=== PATIENT | male | born 1950 | race American Indian/Alaskan Native ===

== ENCOUNTER 2017-09-27 11:54 | Inpatient (IN) | payer MEDICARE, MEDICAID, OTHER ==
[2017-09-27] VITALS (9 sets, daily range): BP systolic 80–146; BP diastolic 34–89
[~2017-09-27] VITALS: Ht 167.6 cm; Wt 79.0 kg
[~2017-09-27 11:54] MED LIST: ASPI-1009 PO; MIDO2.5T14 PO; NORCO10T PO; OMEP40CA37 PO
[2017-09-27] MEDS ORDERED: NORepinephrine 8mg/ 250ml NS 250 ML IV ONE (14:59)
[2017-09-27] MEDS: hydrocortisone sod succ/PF 100mg/2ml inj. IV SCH ×2 (15:01→21:00)
[2017-09-27] MEDS ORDERED: normal saline 1000ml 1,000 ML IV SCH (15:07)
[2017-09-27] MEDS ORDERED: MIDAZolam 5mg/ml 2ml vial ONE (15:09)
[2017-09-27] MEDS ORDERED: sodium phosphate inj. 15 MMOL in dextrose 5%-water 150 ML IV PRN (15:10)
[2017-09-27] MEDS ORDERED: sodium phosphate inj. 30 MMOL in dextrose 5%-water 250 ML IV PRN (15:10)
[2017-09-27] MEDS ORDERED: magnesium Cl slow-release 64mg tablet PO PRN (15:10)
[2017-09-27] MEDS ORDERED: ipratropium/albuterol 3ml nebule NEB PRN (15:10)
[2017-09-27] MEDS ORDERED: Neutra Phos packet PO PRN (15:10)
[2017-09-27] MEDS ORDERED: vancomycin/NS 1 GM ADD-VANTAGE 250 ML IV SCH (15:10)
[2017-09-27] MEDS ORDERED: potassium Cl 20 mEq SR tablet PO PRN ×2 (15:10)
[2017-09-27] MEDS ORDERED: magnesium 4gm in 100ml NS 100 ML IV PRN (15:10)
[2017-09-27] MEDS ORDERED: magnesium 2GM in 50ml NS 50 ML IV PRN (15:10)
[2017-09-27] MEDS ORDERED: piperacillin-tazo 2.25gm/50ml 50 ML IV ONE (15:25)
[2017-09-27] MEDS ORDERED: vancomycin/NS 1 GM ADD-VANTAGE 250 ML IV ONE ×2 (15:26→18:30)
[2017-09-27 15:45] LABS: ABG HCO3 8.1 mmol/L (22.0-26.0); ABG OXYGEN SATURATION 98.2 % (95-98); ABG PCO2 (T) 26.9 mmHg (35.0-48.0); ABG PH (T) 7.098 (7.350-7.450); ABG PO2 (T) 133.8 mmHg (83-108); FCOHb 0.3 % (0.5-1.5); FMetHb 0.2 % (0.3-1.12); FO2Hb 97.7 % (94-100); MINUTE VOLUME 10 L/min; PEEP 5 cm H2O; RESPIRATORY RATE 12 b/min; RESPIRATORY RATE (OBSERVED) 23 b/min; TIDAL VOLUME 450 mL; TOTAL HEMOGLOBIN 9.9 G/dl (14.0-18.0)
[2017-09-27 15:55] LABS: OXYGEN SATURATION (MIXED VEN) 79.1 % (60-80); PO2 MIXED VENOUS (TEMP COR) 46.5 mmHg (35-46)
[2017-09-27 16:19] LABS: BASOPHILS % (AUTO) 0 % (0-1); EOSINOPHILS % (AUTO) 0 % (0-6); HEMATOCRIT 27.9 % (42.0-52.0); HEMOGLOBIN 9.3 g/dl (14.0-17.9); LYMPHOCYTES # (AUTO) 0.5 X10'3 (1.1-4.8); LYMPHOCYTES % (AUTO) 1.8 % (21-51); MEAN CORPUSCULAR HEMOGLOBIN 33.5 PG (27.0-31.0); MEAN CORPUSCULAR HGB CONC 33.3 % (33.0-36.5); MEAN CORPUSCULAR VOLUME 100.8 FL (78-98); MEAN PLATELET VOLUME 8.2 FL (7.4-10.4); MONOCYTES # (AUTO) 2.1 X10'3 (0-0.9); MONOCYTES % (AUTO) 7.9 % (2-12); NEUTROPHILS # (AUTO) 23.6 X10'3 (1.8-7.7); NEUTROPHILS % (AUTO) 90.3 % (42-75); PLATELET COUNT 114 X10'3 (140-440); RED BLOOD COUNT 2.77 X10'6 (4.70-6.10); RED CELL DISTRIBUTION WIDTH 19.3 % (11.5-14.5)
[2017-09-27 16:25] LABS: WHITE BLOOD COUNT 26.2 X10'3 (4.5-11.0)
[2017-09-27 16:39] LABS: ACANTHOCYTES FEW; ANISOCYTOSIS 2+; BURR CELLS 2+; PLATELET ESTIMATE DECREASED; TOTAL CELLS COUNTED 100
[2017-09-27 16:41] LABS: TOXIC VACUOLATION 2+
[2017-09-27] MEDS: pantoprazole 40 MG vial IV SCH (16:42)
[2017-09-27] MEDS: piperacillin-tazo 2.25gm/50ml 50 ML IV SCH ×2 (16:43→21:00)
[2017-09-27 16:50] LABS: ALANINE AMINOTRANSFERASE 88 U/L (12-78); ALBUMIN 1.6 G/DL (3.4-5.0); ALBUMIN/GLOBULIN RATIO 0.4 (1.1-1.5); ALKALINE PHOSPHATASE 115 IU/L (46-116); ANION GAP 17 (8-16); ASPARTATE AMINO TRANSFERASE 312 U/L (10-37); BILIRUBIN,TOTAL 3.5 MG/DL (0.1-1.0); BLOOD UREA NITROGEN 50 MG/DL (7-18); BUN/CREATININE RATIO 12.9 (5.4-32.0); CALCIUM 7.1 MG/DL (8.5-10.1); CHLORIDE 112 MMOL/L (99-107); CREATININE 3.88 MG/DL (0.60-1.10); GLUCOSE 72 MG/DL (70-104); LACTIC SEPSIS 3.9 MMOL/L (0.4-2.0); MAGNESIUM 1.6 MG/DL (1.5-2.4); PHOSPHORUS 4.6 MG/DL (2.3-4.5); POTASSIUM 4.2 MMOL/L (3.5-5.1); SODIUM 139 MMOL/L (135-145); TOTAL PROTEIN 5.6 G/DL (6.4-8.2); eGFR 16 ML/MIN
[2017-09-27 16:51] LABS: TOTAL CARBON DIOXIDE 10.2 MMOL/L (24-32)
[2017-09-27] MEDS: K, MAG and/or Phos replacement - Verify level? MC SCH (17:00)
[2017-09-27 17:08] LABS: CLARITY,URINE CLOUDY (Clear); COLOR,URINE BROWN (Yellow)
[2017-09-27 17:08] LABS: D-DIMER 7.98 MG/L FEU (0-0.50); INR 1.7 INR; PARTIAL THROMBOPLASTIN TIME 58 SECONDS (22-32); PROTHROMBIN TIME 17.7 SECONDS (9.0-12.0)
[2017-09-27 17:12] LABS: UA COLLECTION TYPE NON-SPECIFIED
[2017-09-27 17:15] LABS: PLATELET COUNT 114 X10'3 (140-440)
[2017-09-27 17:23] LABS: BACTERIA,URINE 2+ /HPF (Neg); RBC,URINE TNTC /HPF (0-2); SQUAMOUS EPITHELIAL CELL,UR FEW /LPF (FEW); WBC,URINE TNTC /HPF (0-4)
[2017-09-27] MEDS: MIDAZolam 5mg/ml 2ml vial IV PRN ×3 (17:59→23:16)
[2017-09-27] MEDS: vasopressin inj. 60 UNIT in normal saline 100ml IV soln 97 ML IV SCH (18:07)
[2017-09-27] MEDS: sodium bicarbonate (8.4%) inj. 150 MEQ in dextrose 5%-water 1,000 ML IV SCH (18:19)
[2017-09-27] MEDS: diatr meglu/diatrizoate 30ml oral sol.-(3 dose) bottle PO SCH (21:00)
[2017-09-27 22:45] LABS: OXYGEN SATURATION (MIXED VEN) 81.7 % (60-80)
[2017-09-27] MEDS ORDERED: dextrose ORAL solution 15 GM/59 ML bottle PO PRN ×2 (23:05)
[2017-09-27] MEDS ORDERED: glucagon, human recombinant 1mg kit SUBCUT PRN (23:05)
[2017-09-27] MEDS ORDERED: insulin Lispro (HumaLOG) vial - multi-dose SQ SCH (23:05)
[2017-09-27] MEDS ORDERED: dextrose 50%-water 50ml dispensing syringe IV PRN ×2 (23:05)
[2017-09-27] MEDS ORDERED: dextrose 50%-water 50ml dispensing syringe IV ONE (23:22)
[2017-09-28] VITALS (24 sets, daily range): BP systolic 118–144; BP diastolic 36–50
[2017-09-28] MEDS: diatr meglu/diatrizoate 30ml oral sol.-(3 dose) bottle PO SCH ×2 (00:45→07:33)
[2017-09-28 02:32] LABS: BASOPHILS % (AUTO) 0 % (0-1); EOSINOPHILS % (AUTO) 0 % (0-6); HEMATOCRIT 25.3 % (42.0-52.0); HEMOGLOBIN 8.3 g/dl (14.0-17.9); LYMPHOCYTES # (AUTO) 0.5 X10'3 (1.1-4.8); LYMPHOCYTES % (AUTO) 2.3 % (21-51); MEAN CORPUSCULAR HEMOGLOBIN 33.1 PG (27.0-31.0); MEAN CORPUSCULAR HGB CONC 32.7 % (33.0-36.5); MEAN CORPUSCULAR VOLUME 101.4 FL (78-98); MEAN PLATELET VOLUME 7.9 FL (7.4-10.4); MONOCYTES # (AUTO) 2.2 X10'3 (0-0.9); MONOCYTES % (AUTO) 10.6 % (2-12); NEUTROPHILS # (AUTO) 17.7 X10'3 (1.8-7.7); NEUTROPHILS % (AUTO) 87.1 % (42-75); PLATELET COUNT 101 X10'3 (140-440); RED BLOOD COUNT 2.49 X10'6 (4.70-6.10); WHITE BLOOD COUNT 20.3 X10'3 (4.5-11.0)
[2017-09-28 02:45] LABS: PARTIAL THROMBOPLASTIN TIME 54 SECONDS (22-32); PROTHROMBIN TIME 19.9 SECONDS (9.0-12.0)
[2017-09-28 02:50] LABS: ALANINE AMINOTRANSFERASE 87 U/L (12-78); ALBUMIN 1.4 G/DL (3.4-5.0); ALBUMIN/GLOBULIN RATIO 0.4 (1.1-1.5); ALKALINE PHOSPHATASE 91 IU/L (46-116); ANION GAP 17 (8-16); ASPARTATE AMINO TRANSFERASE 309 U/L (10-37); BILIRUBIN,TOTAL 3.5 MG/DL (0.1-1.0); BLOOD UREA NITROGEN 50 MG/DL (7-18); BUN/CREATININE RATIO 12.2 (5.4-32.0); CALCIUM 6.8 MG/DL (8.5-10.1); CHLORIDE 111 MMOL/L (99-107); CREATININE 4.09 MG/DL (0.60-1.10); GLUCOSE 141 MG/DL (70-104); MAGNESIUM 1.5 MG/DL (1.5-2.4); PHOSPHORUS 4.5 MG/DL (2.3-4.5); POTASSIUM 4.1 MMOL/L (3.5-5.1); SODIUM 139 MMOL/L (135-145); TOTAL PROTEIN 5.1 G/DL (6.4-8.2); eGFR 15 ML/MIN
[2017-09-28] MEDS: hydrocortisone sod succ/PF 100mg/2ml inj. IV SCH ×4 (02:50→20:47)
[2017-09-28] MEDS: piperacillin-tazo 2.25gm/50ml 50 ML IV SCH ×4 (02:50→20:46)
[2017-09-28 02:52] LABS: TOTAL CARBON DIOXIDE 11.2 MMOL/L (24-32)
[2017-09-28] MEDS: NORepinephrine 8mg/ 250ml NS 250 ML IV SCH ×2 (03:33→09:58)
[2017-09-28] MEDS: sodium bicarbonate (8.4%) inj. 150 MEQ in dextrose 5%-water 1,000 ML IV SCH ×3 (03:34→13:30)
[2017-09-28 03:55] LABS: ABG BASE EXCESS -17.2 mmol/L (-2.0-3.0); ABG HCO3 8.8 mmol/L (22.0-26.0); ABG OXYGEN SATURATION 97.5 % (95-98); ABG PH (T) 7.219 (7.350-7.450); ABG PO2 (T) 107.7 mmHg (83-108); FCOHb 0.3 % (0.5-1.5); FMetHb 0.2 % (0.3-1.12); MINUTE VOLUME 11 L/min; PEEP 5 cm H2O; RESPIRATORY RATE 12 b/min; RESPIRATORY RATE (OBSERVED) 23 b/min; TIDAL VOLUME 450 mL; TOTAL HEMOGLOBIN 9.2 G/dl (14.0-18.0)
[2017-09-28 04:00] LABS: OXYGEN SATURATION (MIXED VEN) 80.8 % (60-80); PO2 MIXED VENOUS (TEMP COR) 47.3 mmHg (35-46)
[2017-09-28 04:26] LABS: NUCLEATED RED BLOOD CELLS 1 /100WBC (0-0); TOTAL CELLS COUNTED 100
[2017-09-28 04:28] LABS: ANISOCYTOSIS 2+; BURR CELLS 1+; PLATELET ESTIMATE DECREASED
[2017-09-28 04:29] LABS: TOXIC VACUOLATION 1+
[2017-09-28] MEDS: K, MAG and/or Phos replacement - Verify level? MC SCH (07:22)
[2017-09-28] MEDS: pantoprazole 40 MG vial IV SCH (07:33)
[2017-09-28] MEDS: MIDAZolam 5mg/ml 2ml vial IV PRN ×2 (07:34→21:20)
[2017-09-28] MEDS ORDERED: PIPE3.376 IV (13:45)
[2017-09-28] MEDS ORDERED: METO25TA6 PO (13:45)
[2017-09-28] MEDS ORDERED: PROM25TA14 IM (13:45)
[2017-09-28] MEDS ORDERED: ENOX30DI4 SQ (13:45)
[2017-09-28] MEDS ORDERED: PANT-47 IV (13:45)
[2017-09-28] MEDS ORDERED: LORA2VIA27 IV (13:45)
[2017-09-28] MEDS ORDERED: MAGN400O6 PO (13:45)
[2017-09-28] MEDS ORDERED: ONDA4AMP IV (13:45)
[2017-09-28] MEDS ORDERED: magnesium 4gm in 100ml NS 100 ML IV PRN (14:10)
[2017-09-28] MEDS ORDERED: metoclopramide 10mg/10 ml UD oral solution PO PRN (14:10)
[2017-09-28] MEDS ORDERED: potassium Cl 20 mEq SR tablet PO PRN ×2 (14:10)
[2017-09-28] MEDS ORDERED: magnesium Cl slow-release 64mg tablet PO PRN (14:10)
[2017-09-28] MEDS ORDERED: potassium Cl 40MEQ/250ML bag 250 ML IV PRN ×2 (14:10)
[2017-09-28] MEDS ORDERED: magnesium 2GM in 50ml NS 50 ML IV PRN (14:10)
[2017-09-28] MEDS: linezolid 600mg/300ml PREMIX 300 ML IV SCH (15:12)
[2017-09-28] MEDS: sodium bicarbonate (8.4%) inj. 50 MEQ in sodium chloride 0.45% 1,000 ML IV SCH (15:12)
[2017-09-28] MEDS ORDERED: VANCOMYCIN LEVEL IV ONE (15:30)
[2017-09-28] MEDS: vancomycin/NS 1 GM ADD-VANTAGE 250 ML IV SCH (17:05)
[2017-09-28] MEDS: Insulin Detemir pen SQ SCH (20:58)
[2017-09-28] MEDS: vasopressin inj. 60 UNIT in normal saline 100ml IV soln 97 ML IV SCH (20:59)
[2017-09-28] MEDS: insulin regular, human vial - multi-dose SQ SCH (21:01)
[2017-09-29] VITALS (23 sets, daily range): BP systolic 95–145; BP diastolic 42–61
[2017-09-29] MEDS: NORepinephrine 8mg/ 250ml NS 250 ML IV SCH ×2 (02:05→12:52)
[2017-09-29] MEDS: hydrocortisone sod succ/PF 100mg/2ml inj. IV SCH ×4 (02:06→21:22)
[2017-09-29] MEDS: sodium bicarbonate (8.4%) inj. 50 MEQ in sodium chloride 0.45% 1,000 ML IV SCH ×3 (02:06→12:51)
[2017-09-29] MEDS: piperacillin-tazo 2.25gm/50ml 50 ML IV SCH ×4 (02:07→21:22)
[2017-09-29] MEDS: insulin regular, human vial - multi-dose SQ SCH ×4 (02:18→22:44)
[2017-09-29 03:16] LABS: ABG HCO3 14.1 mmol/L (22.0-26.0); ABG PCO2 (T) 27.8 mmHg (35.0-48.0); ABG PO2 (T) 79.7 mmHg (83-108); FCOHb 0.3 % (0.5-1.5); FMetHb 0.1 % (0.3-1.12); FO2Hb 94.6 % (94-100); MINUTE VOLUME 11 L/min; PATIENT TEMPERATURE 36.6; PEEP 5 cm H2O; RESPIRATORY RATE 12 b/min; RESPIRATORY RATE (OBSERVED) 21 b/min; TIDAL VOLUME 450 mL; TOTAL HEMOGLOBIN 8.7 G/dl (14.0-18.0)
[2017-09-29 03:53] LABS: BASOPHILS # (AUTO) 0.2 X10'3 (0-0.2); BASOPHILS % (AUTO) 1.1 % (0-1); EOSINOPHILS # (AUTO) 0.2 X10'3 (0-0.9); EOSINOPHILS % (AUTO) 1.4 % (0-6); HEMATOCRIT 23.6 % (42.0-52.0); HEMOGLOBIN 8.1 g/dl (14.0-17.9); LYMPHOCYTES # (AUTO) 0.2 X10'3 (1.1-4.8); MEAN CORPUSCULAR HEMOGLOBIN 33.7 PG (27.0-31.0); MEAN CORPUSCULAR HGB CONC 34.2 % (33.0-36.5); MEAN CORPUSCULAR VOLUME 98.5 FL (78-98); MEAN PLATELET VOLUME 7.7 FL (7.4-10.4); MONOCYTES # (AUTO) 1.5 X10'3 (0-0.9); NEUTROPHILS # (AUTO) 15.1 X10'3 (1.8-7.7); NEUTROPHILS % (AUTO) 87.5 % (42-75); PLATELET COUNT 65 X10'3 (140-440); RED CELL DISTRIBUTION WIDTH 18.8 % (11.5-14.5); WHITE BLOOD COUNT 17.2 X10'3 (4.5-11.0)
[2017-09-29 04:03] LABS: INR 1.8 INR; PARTIAL THROMBOPLASTIN TIME 51 SECONDS (22-32); PROTHROMBIN TIME 17.9 SECONDS (9.0-12.0)
[2017-09-29 04:06] LABS: ALANINE AMINOTRANSFERASE 97 U/L (12-78); ALBUMIN 1.4 G/DL (3.4-5.0); ALBUMIN/GLOBULIN RATIO 0.4 (1.1-1.5); ALKALINE PHOSPHATASE 86 IU/L (46-116); ANION GAP 15 (8-16); ASPARTATE AMINO TRANSFERASE 215 U/L (10-37); BILIRUBIN,TOTAL 3.6 MG/DL (0.1-1.0); BLOOD UREA NITROGEN 58 MG/DL (7-18); BUN/CREATININE RATIO 12.7 (5.4-32.0); CALCIUM 6.6 MG/DL (8.5-10.1); CHLORIDE 109 MMOL/L (99-107); CREATININE 4.58 MG/DL (0.60-1.10); GLUCOSE 147 MG/DL (70-104); MAGNESIUM 1.5 MG/DL (1.5-2.4); SODIUM 139 MMOL/L (135-145); TOTAL CARBON DIOXIDE 15.3 MMOL/L (24-32); TOTAL PROTEIN 5.1 G/DL (6.4-8.2); eGFR 13 ML/MIN
[2017-09-29] MEDS: MIDAZolam 5mg/ml 2ml vial IV PRN (04:18)
[2017-09-29 04:31] LABS: HEMOGLOBIN A1C 5.1 % (4.5-6.2)
[2017-09-29] MEDS: K and/or MAG REPLACEMENT MC SCH (08:00)
[2017-09-29] MEDS: K, MAG and/or Phos replacement - Verify level? MC SCH (08:00)
[2017-09-29] MEDS: pantoprazole 40 MG vial IV SCH (08:26)
[2017-09-29] MEDS: linezolid 600mg/300ml PREMIX 300 ML IV SCH ×2 (08:26→21:22)
[2017-09-29 11:30] LABS: OXYGEN SATURATION (MIXED VEN) 77.5 % (60-80); PO2 MIXED VENOUS (TEMP COR) 43.6 mmHg (35-46)
[2017-09-29] MEDS ORDERED: VANCOMYCIN LEVEL IV ONE (16:30)
[2017-09-29] MEDS: vancomycin/NS 1 GM ADD-VANTAGE 250 ML IV SCH (16:59)
[2017-09-29] MEDS: Insulin Detemir pen SQ SCH (22:44)
[2017-09-30] VITALS (24 sets, daily range): BP systolic 78–123; BP diastolic 44–66
[2017-09-30] MEDS: sodium bicarbonate (8.4%) inj. 50 MEQ in sodium chloride 0.45% 1,000 ML IV SCH ×2 (00:28→07:42)
[2017-09-30] MEDS: hydrocortisone sod succ/PF 100mg/2ml inj. IV SCH ×4 (02:06→19:57)
[2017-09-30] MEDS: piperacillin-tazo 2.25gm/50ml 50 ML IV SCH ×4 (02:06→19:57)
[2017-09-30] MEDS: HYDROcodone/acetaminophen 10/325mg tab PO PRN ×2 (03:20→11:41)
[2017-09-30 03:30] LABS: ABG BASE EXCESS -13.2 mmol/L (-2.0-3.0); ABG HCO3 12.5 mmol/L (22.0-26.0); ABG OXYGEN SATURATION 92.9 % (95-98); ABG PCO2 (T) 26.5 mmHg (35.0-48.0); ABG PH (T) 7.284 (7.350-7.450); ABG PO2 (T) 66.6 mmHg (83-108); FCOHb 0.3 % (0.5-1.5); FMetHb 0.1 % (0.3-1.12); FO2Hb 92.5 % (94-100); MINUTE VOLUME 9 L/min; PATIENT TEMPERATURE 35.5; PEEP 5 cm H2O; RESPIRATORY RATE 12 b/min; RESPIRATORY RATE (OBSERVED) 17 b/min; TIDAL VOLUME 450 mL; TOTAL HEMOGLOBIN 9.5 G/dl (14.0-18.0)
[2017-09-30 03:41] LABS: OXYGEN SATURATION (MIXED VEN) 72.1 % (60-80); PO2 MIXED VENOUS (TEMP COR) 37.3 mmHg (35-46)
[2017-09-30 05:15] LABS: BASOPHILS % (AUTO) 0 % (0-1); EOSINOPHILS % (AUTO) 0 % (0-6); HEMATOCRIT 26.2 % (42.0-52.0); HEMOGLOBIN 8.8 g/dl (14.0-17.9); LYMPHOCYTES # (AUTO) 0.4 X10'3 (1.1-4.8); LYMPHOCYTES % (AUTO) 2.2 % (21-51); MEAN CORPUSCULAR HEMOGLOBIN 33.3 PG (27.0-31.0); MEAN CORPUSCULAR HGB CONC 33.4 % (33.0-36.5); MEAN CORPUSCULAR VOLUME 99.9 FL (78-98); MEAN PLATELET VOLUME 8.6 FL (7.4-10.4); MONOCYTES # (AUTO) 1.6 X10'3 (0-0.9); MONOCYTES % (AUTO) 8.4 % (2-12); NEUTROPHILS # (AUTO) 17.1 X10'3 (1.8-7.7); NEUTROPHILS % (AUTO) 89.4 % (42-75); PLATELET COUNT 54 X10'3 (140-440); RED BLOOD COUNT 2.63 X10'6 (4.70-6.10); RED CELL DISTRIBUTION WIDTH 18.6 % (11.5-14.5); WHITE BLOOD COUNT 19.1 X10'3 (4.5-11.0)
[2017-09-30 05:29] LABS: ALANINE AMINOTRANSFERASE 109 U/L (12-78); ALBUMIN 1.5 G/DL (3.4-5.0); ALBUMIN/GLOBULIN RATIO 0.4 (1.1-1.5); ALKALINE PHOSPHATASE 148 IU/L (46-116); ANION GAP 15 (8-16); ASPARTATE AMINO TRANSFERASE 143 U/L (10-37); BLOOD UREA NITROGEN 69 MG/DL (7-18); BUN/CREATININE RATIO 14.1 (5.4-32.0); CALCIUM 6.3 MG/DL (8.5-10.1); CHLORIDE 106 MMOL/L (99-107); CREATININE 4.88 MG/DL (0.60-1.10); GLUCOSE 156 MG/DL (70-104); MAGNESIUM 1.4 MG/DL (1.5-2.4); PHOSPHORUS 3.6 MG/DL (2.3-4.5); POTASSIUM 3.5 MMOL/L (3.5-5.1); SODIUM 138 MMOL/L (135-145); TOTAL CARBON DIOXIDE 17.2 MMOL/L (24-32); TOTAL PROTEIN 5.5 G/DL (6.4-8.2); eGFR 12 ML/MIN
[2017-09-30 05:30] LABS: ACANTHOCYTES FEW; ANISOCYTOSIS 2+; PLATELET ESTIMATE DECREASED; TARGET CELLS 1+; TEAR DROP CELLS FEW
[2017-09-30 05:31] LABS: BURR CELLS 1+
[2017-09-30 05:32] LABS: INR 1.7 INR; PARTIAL THROMBOPLASTIN TIME 49 SECONDS (22-32); PROTHROMBIN TIME 17.1 SECONDS (9.0-12.0)
[2017-09-30] MEDS: NORepinephrine 8mg/ 250ml NS 250 ML IV SCH (05:55)
[2017-09-30] MEDS: LACTOBACILLUS RHAMNOSUS GG 15 billion unit sprinkle caps PO SCH (07:42)
[2017-09-30] MEDS: pantoprazole 40 MG vial IV SCH (07:42)
[2017-09-30] MEDS: linezolid 600mg/300ml PREMIX 300 ML IV SCH (07:42)
[2017-09-30] MEDS: emollient combination-Eucerin 250 ML LOTION TP SCH (07:43)
[2017-09-30] MEDS: insulin regular, human vial - multi-dose SQ SCH ×3 (07:49→19:59)
[2017-09-30] MEDS: K, MAG and/or Phos replacement - Verify level? MC SCH (08:00)
[2017-09-30] MEDS: K and/or MAG REPLACEMENT MC SCH (08:03)
[2017-09-30] MEDS ORDERED: vancomycin inj. 750 MG in normal saline 250ml IV soln 250 ML IV SCH (17:00)
[2017-09-30] MEDS: Insulin Detemir pen SQ SCH (20:00)
[2017-10-01] VITALS (25 sets, daily range): BP systolic 60–148; BP diastolic 40–78
[2017-10-01] MEDS: piperacillin-tazo 2.25gm/50ml 50 ML IV SCH ×3 (02:07→14:56)
[2017-10-01] MEDS: hydrocortisone sod succ/PF 100mg/2ml inj. IV SCH ×4 (02:07→21:50)
[2017-10-01] MEDS: NORepinephrine 8mg/ 250ml NS 250 ML IV SCH ×3 (02:09→21:51)
[2017-10-01] MEDS: insulin regular, human vial - multi-dose SQ SCH (02:22)
[2017-10-01 03:09] LABS: BASOPHILS % (AUTO) 0 % (0-1); EOSINOPHILS % (AUTO) 0 % (0-6); HEMATOCRIT 27.3 % (42.0-52.0); HEMOGLOBIN 9.2 g/dl (14.0-17.9); LYMPHOCYTES # (AUTO) 0.6 X10'3 (1.1-4.8); LYMPHOCYTES % (AUTO) 2.6 % (21-51); MEAN CORPUSCULAR HEMOGLOBIN 33.5 PG (27.0-31.0); MEAN CORPUSCULAR HGB CONC 33.6 % (33.0-36.5); MEAN CORPUSCULAR VOLUME 99.8 FL (78-98); MEAN PLATELET VOLUME 8.5 FL (7.4-10.4); MONOCYTES % (AUTO) 4.6 % (2-12); NEUTROPHILS # (AUTO) 20.4 X10'3 (1.8-7.7); NEUTROPHILS % (AUTO) 92.8 % (42-75); RED BLOOD COUNT 2.74 X10'6 (4.70-6.10); RED CELL DISTRIBUTION WIDTH 18.1 % (11.5-14.5)
[2017-10-01 03:19] LABS: INR 1.8 INR; PARTIAL THROMBOPLASTIN TIME 47 SECONDS (22-32); PROTHROMBIN TIME 18.6 SECONDS (9.0-12.0); WHITE BLOOD COUNT 21.9 X10'3 (4.5-11.0)
[2017-10-01 03:24] LABS: ALANINE AMINOTRANSFERASE 104 U/L (12-78); ALBUMIN 1.4 G/DL (3.4-5.0); ALBUMIN/GLOBULIN RATIO 0.3 (1.1-1.5); ALKALINE PHOSPHATASE 185 IU/L (46-116); ANION GAP 15 (8-16); ASPARTATE AMINO TRANSFERASE 90 U/L (10-37); BILIRUBIN,TOTAL 2.6 MG/DL (0.1-1.0); BLOOD UREA NITROGEN 80 MG/DL (7-18); CALCIUM 6.5 MG/DL (8.5-10.1); CHLORIDE 104 MMOL/L (99-107); CREATININE 5.35 MG/DL (0.60-1.10); GLUCOSE 122 MG/DL (70-104); MAGNESIUM 1.4 MG/DL (1.5-2.4); PHOSPHORUS 4.3 MG/DL (2.3-4.5); POTASSIUM 3.9 MMOL/L (3.5-5.1); SODIUM 136 MMOL/L (135-145); TOTAL CARBON DIOXIDE 17.5 MMOL/L (24-32); TOTAL PROTEIN 5.5 G/DL (6.4-8.2); eGFR 11 ML/MIN
[2017-10-01 03:46] LABS: NUCLEATED RED BLOOD CELLS 1 /100WBC (0-0); TOTAL CELLS COUNTED 100
[2017-10-01 03:47] LABS: ACANTHOCYTES FEW; ANISOCYTOSIS 2+; BURR CELLS 1+; PLATELET ESTIMATE DECREASED; TARGET CELLS 1+
[2017-10-01 03:48] LABS: TOXIC VACUOLATION 2+
[2017-10-01 03:56] LABS: ABG BASE EXCESS -12.8 mmol/L (-2.0-3.0); ABG HCO3 13.8 mmol/L (22.0-26.0); ABG OXYGEN SATURATION 92.9 % (95-98); ABG PCO2 (T) 33.1 mmHg (35.0-48.0); ABG PH (T) 7.234 (7.350-7.450); ABG PO2 (T) 68.8 mmHg (83-108); ALLEN'S TEST Positive; FCOHb 0.3 % (0.5-1.5); FMetHb 0.1 % (0.3-1.12); FO2Hb 92.5 % (94-100); MINUTE VOLUME 7 L/min; PATIENT TEMPERATURE 36.1; PEEP 5 cm H2O; RESPIRATORY RATE 12 b/min; RESPIRATORY RATE (OBSERVED) 14 b/min; TIDAL VOLUME 450 mL
[2017-10-01 04:11] LABS: OXYGEN SATURATION (MIXED VEN) 79.5 % (60-80); PO2 MIXED VENOUS (TEMP COR) 44.3 mmHg (35-46)
[2017-10-01] MEDS: pantoprazole 40 MG vial IV SCH (07:36)
[2017-10-01] MEDS: emollient combination-Eucerin 250 ML LOTION TP SCH (07:37)
[2017-10-01] MEDS: LACTOBACILLUS RHAMNOSUS GG 15 billion unit sprinkle caps PO SCH (07:37)
[2017-10-01] MEDS: K, MAG and/or Phos replacement - Verify level? MC SCH (08:00)
[2017-10-01] MEDS: K and/or MAG REPLACEMENT MC SCH (08:00)
[2017-10-01] MEDS ORDERED: heparin 1,000 units/ml 10ml inj HE ONE ×3 (12:10→15:20)
[2017-10-01] MEDS: HYDROcodone/acetaminophen 10/325mg tab PO PRN (14:56)
[2017-10-01 18:11] LABS: ABG BASE EXCESS -16.5 mmol/L (-2.0-3.0); ABG HCO3 12.6 mmol/L (22.0-26.0); ABG OXYGEN SATURATION 91.2 % (95-98); ABG PCO2 (T) 43.1 mmHg (35.0-48.0); ABG PH (T) 7.085 (7.350-7.450); ABG PO2 (T) 74.7 mmHg (83-108); ALLEN'S TEST Positive; FCOHb 0.3 % (0.5-1.5); FMetHb 0.3 % (0.3-1.12); FO2Hb 90.7 % (94-100); MINUTE VOLUME 12 L/min; RESPIRATORY RATE 16 b/min; RESPIRATORY RATE (OBSERVED) 20 b/min; TOTAL HEMOGLOBIN 10.3 G/dl (14.0-18.0)
[2017-10-01] MEDS ORDERED: calcium chloride inj. 10,000 MG in normal saline 500ml IV soln 400 ML IV PRN (18:35)
[2017-10-01] MEDS ORDERED: magnesium 4gm in 100ml NS 100 ML IV PRN (18:35)
[2017-10-01] MEDS ORDERED: potassium Cl 20mEq/100mL bag 100 ML IV PRN (18:35)
[2017-10-01] MEDS ORDERED: midazolam 100mg in NS 100ml 100 ML IV PRN (18:58)
[2017-10-01] MEDS ORDERED: FENTANYL-0.9 % NACL/PF 100 ML IV PRN (18:58)
[2017-10-01] MEDS ORDERED: vancomycin/NS 1 GM ADD-VANTAGE 250 ML IV ONE (19:00)
[2017-10-01] MEDS ORDERED: etomidate 2mg/ml inj. IV ONE (19:15)
[2017-10-01] MEDS ORDERED: MIDAZolam 5mg/ml 2ml vial IV ONE (19:15)
[2017-10-01] MEDS: Duosol 4k/NO Calcium 5,000 ML HE SCH ×4 (19:54→23:31)
[2017-10-01] MEDS: citrate dextrose 1000ml IV sol 1,000 ML IV PRN ×2 (19:57→23:30)
[2017-10-01] MEDS: calcium chloride inj. 10,000 MG in normal saline 500ml IV soln 400 ML IV PRN ×2 (20:18→23:29)
[2017-10-01] MEDS: Insulin Detemir pen SQ SCH (21:00)
[2017-10-01 22:11] LABS: BASOPHILS % (AUTO) 0 % (0-1); EOSINOPHILS % (AUTO) 0 % (0-6); HEMATOCRIT 27.8 % (42.0-52.0); HEMOGLOBIN 9.3 g/dl (14.0-17.9); LYMPHOCYTES # (AUTO) 0.3 X10'3 (1.1-4.8); LYMPHOCYTES % (AUTO) 0.9 % (21-51); MEAN CORPUSCULAR HEMOGLOBIN 33.4 PG (27.0-31.0); MEAN CORPUSCULAR HGB CONC 33.4 % (33.0-36.5); MEAN CORPUSCULAR VOLUME 99.9 FL (78-98); MEAN PLATELET VOLUME 9.5 FL (7.4-10.4); MONOCYTES # (AUTO) 1.6 X10'3 (0-0.9); MONOCYTES % (AUTO) 5.7 % (2-12); NEUTROPHILS # (AUTO) 26.7 X10'3 (1.8-7.7); NEUTROPHILS % (AUTO) 93.4 % (42-75); RED BLOOD COUNT 2.79 X10'6 (4.70-6.10); RED CELL DISTRIBUTION WIDTH 18.5 % (11.5-14.5)
[2017-10-01 22:23] LABS: ALBUMIN 1.5 G/DL (3.4-5.0); ANION GAP 22 (8-16); BLOOD UREA NITROGEN 78 MG/DL (7-18); CHLORIDE 103 MMOL/L (99-107); CREATININE 4.88 MG/DL (0.60-1.10); GLUCOSE 117 MG/DL (70-104); MAGNESIUM 1.5 MG/DL (1.5-2.4); PHOSPHORUS 4.9 MG/DL (2.3-4.5); POTASSIUM 4.2 MMOL/L (3.5-5.1); SODIUM 136 MMOL/L (135-145); eGFR 12 ML/MIN
[2017-10-01 22:28] LABS: PLATELET COUNT 31 X10'3 (140-440); WHITE BLOOD COUNT 28.6 X10'3 (4.5-11.0)
[2017-10-01 22:45] LABS: TOTAL CARBON DIOXIDE 10.6 MMOL/L (24-32)
[2017-10-01] MEDS ORDERED: albumin (human) 25% 100 ML IV solution IV ONE (22:55)
[2017-10-01] MEDS ORDERED: vasoPRESSIN 20 units/ml inj. ONE (23:10)
[2017-10-01] MEDS ORDERED: calcium chloride 100 MG/1 ML inj IV ONE ×2 (23:12→23:45)
[2017-10-01 23:23] LABS: BASOPHILS % (AUTO) 0 % (0-1); EOSINOPHILS % (AUTO) 0 % (0-6); HEMATOCRIT 29.4 % (42.0-52.0); HEMOGLOBIN 9.7 g/dl (14.0-17.9); LYMPHOCYTES # (AUTO) 0.3 X10'3 (1.1-4.8); LYMPHOCYTES % (AUTO) 1.2 % (21-51); MEAN CORPUSCULAR HEMOGLOBIN 33.4 PG (27.0-31.0); MEAN CORPUSCULAR HGB CONC 33.1 % (33.0-36.5); MEAN CORPUSCULAR VOLUME 100.9 FL (78-98); MEAN PLATELET VOLUME 8.9 FL (7.4-10.4); MONOCYTES # (AUTO) 0.3 X10'3 (0-0.9); MONOCYTES % (AUTO) 1.1 % (2-12); NEUTROPHILS # (AUTO) 26.5 X10'3 (1.8-7.7); NEUTROPHILS % (AUTO) 97.7 % (42-75); RED BLOOD COUNT 2.91 X10'6 (4.70-6.10)
[2017-10-01] MEDS: vasopressin inj. 60 UNIT in normal saline 100ml IV soln 97 ML IV SCH (23:25)
[2017-10-01 23:28] LABS: PLATELET COUNT 32 X10'3 (140-440); WHITE BLOOD COUNT 27.1 X10'3 (4.5-11.0)
[2017-10-01 23:39] LABS: ALBUMIN 1.6 G/DL (3.4-5.0); ANION GAP 23 (8-16); BLOOD UREA NITROGEN 73 MG/DL (7-18); BUN/CREATININE RATIO 16.2 (5.4-32.0); CHLORIDE 102 MMOL/L (99-107); GLUCOSE 112 MG/DL (70-104); MAGNESIUM 1.7 MG/DL (1.5-2.4); PHOSPHORUS 4.7 MG/DL (2.3-4.5); POTASSIUM 4.3 MMOL/L (3.5-5.1); SODIUM 136 MMOL/L (135-145); eGFR 13 ML/MIN
[2017-10-01 23:41] LABS: TOTAL CARBON DIOXIDE 10.9 MMOL/L (24-32)
[2017-10-01 23:55] LABS: ANISOCYTOSIS 2+; PLATELET ESTIMATE DECREASED; TOTAL CELLS COUNTED 100
[2017-10-01 23:56] LABS: BURR CELLS 2+; TOXIC GRANULATION 1+
[2017-10-02] VITALS (32 sets, daily range): BP systolic 64–131; BP diastolic 28–67
[2017-10-02 00:35] LABS: BASOPHILS % (AUTO) 0 % (0-1); EOSINOPHILS % (AUTO) 0 % (0-6); HEMATOCRIT 24.9 % (42.0-52.0); HEMOGLOBIN 8.2 g/dl (14.0-17.9); LYMPHOCYTES # (AUTO) 0.3 X10'3 (1.1-4.8); LYMPHOCYTES % (AUTO) 1.4 % (21-51); MEAN CORPUSCULAR HEMOGLOBIN 33.3 PG (27.0-31.0); MEAN CORPUSCULAR HGB CONC 33.1 % (33.0-36.5); MEAN CORPUSCULAR VOLUME 100.7 FL (78-98); MEAN PLATELET VOLUME 9.1 FL (7.4-10.4); MONOCYTES # (AUTO) 1.6 X10'3 (0-0.9); MONOCYTES % (AUTO) 6.7 % (2-12); NEUTROPHILS # (AUTO) 22.3 X10'3 (1.8-7.7); NEUTROPHILS % (AUTO) 91.9 % (42-75); RED BLOOD COUNT 2.47 X10'6 (4.70-6.10); RED CELL DISTRIBUTION WIDTH 18.5 % (11.5-14.5); WHITE BLOOD COUNT 24.3 X10'3 (4.5-11.0)
[2017-10-02 00:38] LABS: PLATELET COUNT 31 X10'3 (140-440)
[2017-10-02 00:46] LABS: ANION GAP 24 (8-16); BLOOD UREA NITROGEN 71 MG/DL (7-18); CHLORIDE 102 MMOL/L (99-107); CREATININE 4.43 MG/DL (0.60-1.10); GLUCOSE 108 MG/DL (70-104); MAGNESIUM 1.7 MG/DL (1.5-2.4); PHOSPHORUS 4.8 MG/DL (2.3-4.5); POTASSIUM 4.2 MMOL/L (3.5-5.1); SODIUM 137 MMOL/L (135-145); eGFR 13 ML/MIN
[2017-10-02 00:52] LABS: TOTAL CARBON DIOXIDE 10.6 MMOL/L (24-32)
[2017-10-02 01:45] LABS: ALBUMIN 2.9 G/DL (3.4-5.0); ANION GAP 27 (8-16); BLOOD UREA NITROGEN 67 MG/DL (7-18); BUN/CREATININE RATIO 15.8 (5.4-32.0); CHLORIDE 102 MMOL/L (99-107); CREATININE 4.25 MG/DL (0.60-1.10); GLUCOSE 107 MG/DL (70-104); MAGNESIUM 1.7 MG/DL (1.5-2.4); PHOSPHORUS 4.8 MG/DL (2.3-4.5); POTASSIUM 4.3 MMOL/L (3.5-5.1); SODIUM 137 MMOL/L (135-145); eGFR 14 ML/MIN
[2017-10-02] MEDS: NORepinephrine 8mg/ 250ml NS 250 ML IV SCH ×7 (01:47→22:05)
[2017-10-02 01:48] LABS: TOTAL CARBON DIOXIDE 8.5 MMOL/L (24-32)
[2017-10-02] MEDS ORDERED: calcium chloride inj. 1,000 MG in normal saline 100ml IV soln 90 ML IV ONE (01:55)
[2017-10-02] MEDS ORDERED: calcium chloride 100 MG/1 ML inj IV ONE ×5 (02:00→04:55)
[2017-10-02 02:10] LABS: BASOPHILS % (AUTO) 0.1 % (0-1); EOSINOPHILS % (AUTO) 0 % (0-6); HEMATOCRIT 24.3 % (42.0-52.0); LYMPHOCYTES # (AUTO) 0.5 X10'3 (1.1-4.8); LYMPHOCYTES % (AUTO) 1.9 % (21-51); MEAN CORPUSCULAR HEMOGLOBIN 33.2 PG (27.0-31.0); MEAN CORPUSCULAR HGB CONC 32.9 % (33.0-36.5); MEAN CORPUSCULAR VOLUME 100.9 FL (78-98); MEAN PLATELET VOLUME 9.1 FL (7.4-10.4); MONOCYTES # (AUTO) 1.8 X10'3 (0-0.9); MONOCYTES % (AUTO) 7.2 % (2-12); NEUTROPHILS % (AUTO) 90.8 % (42-75); RED BLOOD COUNT 2.41 X10'6 (4.70-6.10); RED CELL DISTRIBUTION WIDTH 18.4 % (11.5-14.5); WHITE BLOOD COUNT 24.2 X10'3 (4.5-11.0)
[2017-10-02 02:17] LABS: PLATELET COUNT 29 X10'3 (140-440)
[2017-10-02] MEDS ORDERED: sodium bicarbonate (8.4%) 1 mEq/ml syringe IV ONE (02:20)
[2017-10-02] MEDS ORDERED: sodium bicarbonate (8.4%) 1 mEq/ml syringe ONE ×2 (02:26→05:04)
[2017-10-02] MEDS: hydrocortisone sod succ/PF 100mg/2ml inj. IV SCH ×4 (02:27→20:12)
[2017-10-02] MEDS: sodium bicarbonate (8.4%) inj. 150 MEQ in dextrose 5%-water 1,000 ML IV SCH ×4 (02:58→19:15)
[2017-10-02 04:50] LABS: INR 2.6 INR; PARTIAL THROMBOPLASTIN TIME 66 SECONDS (22-32); PROTHROMBIN TIME 25.8 SECONDS (9.0-12.0)
[2017-10-02 04:52] LABS: ALANINE AMINOTRANSFERASE 100 U/L (12-78); ALBUMIN 2.7 G/DL (3.4-5.0); ALBUMIN/GLOBULIN RATIO 0.9 (1.1-1.5); ALKALINE PHOSPHATASE 149 IU/L (46-116); ANION GAP 25 (8-16); ASPARTATE AMINO TRANSFERASE 107 U/L (10-37); BILIRUBIN,TOTAL 3.3 MG/DL (0.1-1.0); BLOOD UREA NITROGEN 59 MG/DL (7-18); BUN/CREATININE RATIO 15.2 (5.4-32.0); CALCIUM 10.6 MG/DL (8.5-10.1); CHLORIDE 101 MMOL/L (99-107); CREATININE 3.88 MG/DL (0.60-1.10); GLUCOSE 118 MG/DL (70-104); MAGNESIUM 1.6 MG/DL (1.5-2.4); PHOSPHORUS 4.6 MG/DL (2.3-4.5); POTASSIUM 4.1 MMOL/L (3.5-5.1); SODIUM 136 MMOL/L (135-145); TOTAL PROTEIN 5.8 G/DL (6.4-8.2); eGFR 16 ML/MIN
[2017-10-02 04:55] LABS: TOTAL CARBON DIOXIDE 9.6 MMOL/L (24-32)
[2017-10-02 05:03] LABS: BASOPHILS % (AUTO) 0 % (0-1); EOSINOPHILS % (AUTO) 0 % (0-6); HEMATOCRIT 22.6 % (42.0-52.0); HEMOGLOBIN 7.5 g/dl (14.0-17.9); LYMPHOCYTES # (AUTO) 0.3 X10'3 (1.1-4.8); LYMPHOCYTES % (AUTO) 1.6 % (21-51); MEAN CORPUSCULAR HEMOGLOBIN 33.7 PG (27.0-31.0); MEAN CORPUSCULAR HGB CONC 33.3 % (33.0-36.5); MEAN CORPUSCULAR VOLUME 101.3 FL (78-98); MEAN PLATELET VOLUME 8.4 FL (7.4-10.4); MONOCYTES # (AUTO) 1.4 X10'3 (0-0.9); MONOCYTES % (AUTO) 6.4 % (2-12); NEUTROPHILS # (AUTO) 19.5 X10'3 (1.8-7.7); RED BLOOD COUNT 2.23 X10'6 (4.70-6.10); RED CELL DISTRIBUTION WIDTH 18.5 % (11.5-14.5); WHITE BLOOD COUNT 21.3 X10'3 (4.5-11.0)
[2017-10-02 05:06] LABS: PLATELET COUNT 31 X10'3 (140-440)
[2017-10-02 05:12] LABS: ANISOCYTOSIS 2+; BURR CELLS 2+; NUCLEATED RED BLOOD CELLS 4 /100WBC (0-0); PLATELET ESTIMATE DECREASED; TOTAL CELLS COUNTED 100
[2017-10-02] MEDS ORDERED: NORepinephrine 8mg/ 250ml NS 250 ML IV ONE ×3 (05:19→12:18)
[2017-10-02] MEDS: calcium chloride inj. 10,000 MG in normal saline 500ml IV soln 400 ML IV PRN ×3 (05:59→17:46)
[2017-10-02 06:15] LABS: PLATELET COUNT 37 X10'3 (140-440)
[2017-10-02] MEDS: citrate dextrose 1000ml IV sol 1,000 ML IV PRN ×3 (06:42→14:59)
[2017-10-02] MEDS: Duosol 4k/NO Calcium 5,000 ML HE SCH ×4 (06:53→17:57)
[2017-10-02] MEDS: vancomycin/NS 1 GM ADD-VANTAGE 250 ML IV SCH (07:38)
[2017-10-02] MEDS: LACTOBACILLUS RHAMNOSUS GG 15 billion unit sprinkle caps PO SCH (07:38)
[2017-10-02] MEDS: emollient combination-Eucerin 250 ML LOTION TP SCH (07:39)
[2017-10-02] MEDS: K, MAG and/or Phos replacement - Verify level? MC SCH (07:49)
[2017-10-02] MEDS ORDERED: methylnaltrexone br 12mg/0.6ml inj***SubQ only SQ SCH (08:00)
[2017-10-02 11:47] LABS: BASOPHILS % (AUTO) 0.1 % (0-1); EOSINOPHILS % (AUTO) 0.1 % (0-6); LYMPHOCYTES # (AUTO) 0.7 X10'3 (1.1-4.8); LYMPHOCYTES % (AUTO) 3.5 % (21-51); MEAN CORPUSCULAR HEMOGLOBIN 33.5 PG (27.0-31.0); MEAN CORPUSCULAR HGB CONC 33.2 % (33.0-36.5); MEAN CORPUSCULAR VOLUME 100.9 FL (78-98); MEAN PLATELET VOLUME 8.6 FL (7.4-10.4); MONOCYTES # (AUTO) 1.4 X10'3 (0-0.9); MONOCYTES % (AUTO) 7.1 % (2-12); NEUTROPHILS # (AUTO) 17.3 X10'3 (1.8-7.7); NEUTROPHILS % (AUTO) 89.2 % (42-75); RED BLOOD COUNT 2.08 X10'6 (4.70-6.10); RED CELL DISTRIBUTION WIDTH 19.4 % (11.5-14.5)
[2017-10-02 12:06] LABS: ALBUMIN 2.4 G/DL (3.4-5.0); ANION GAP 27 (8-16); BLOOD UREA NITROGEN 44 MG/DL (7-18); BUN/CREATININE RATIO 14.1 (5.4-32.0); CHLORIDE 102 MMOL/L (99-107); CREATININE 3.12 MG/DL (0.60-1.10); GLUCOSE 158 MG/DL (70-104); PHOSPHORUS 4.2 MG/DL (2.3-4.5); POTASSIUM 4.1 MMOL/L (3.5-5.1); SODIUM 138 MMOL/L (135-145); eGFR 20 ML/MIN
[2017-10-02 12:16] LABS: HEMOGLOBIN 6.9 g/dl (14.0-17.9)
[2017-10-02 12:17] LABS: MAGNESIUM 1.6 MG/DL (1.5-2.4); PLATELET COUNT 29 X10'3 (140-440)
[2017-10-02 12:20] LABS: TOTAL CARBON DIOXIDE 9.4 MMOL/L (24-32); TROPONIN I 0.68 NG/ML (0.0-0.05)
[2017-10-02 12:21] LABS: ANISOCYTOSIS 2+; BURR CELLS 1+; NUCLEATED RED BLOOD CELLS 12 /100WBC (0-0); PLATELET ESTIMATE DECREASED; POLYCHROMASIA 1+; TOTAL CELLS COUNTED 100
[2017-10-02 12:23] LABS: WHITE BLOOD COUNT 19.3 X10'3 (4.5-11.0)
[2017-10-02] MEDS: ampicillin/sulbac 3gm/NS 100ml 100 ML IV SCH ×3 (13:45→23:02)
[2017-10-02 17:25] LABS: BASOPHILS % (AUTO) 0.1 % (0-1); EOSINOPHILS # (AUTO) 0.1 X10'3 (0-0.9); EOSINOPHILS % (AUTO) 0.2 % (0-6); HEMOGLOBIN 9.3 g/dl (14.0-17.9); LYMPHOCYTES # (AUTO) 0.9 X10'3 (1.1-4.8); LYMPHOCYTES % (AUTO) 3.4 % (21-51); MEAN CORPUSCULAR HEMOGLOBIN 32.5 PG (27.0-31.0); MEAN CORPUSCULAR HGB CONC 33.1 % (33.0-36.5); MEAN CORPUSCULAR VOLUME 98.2 FL (78-98); MEAN PLATELET VOLUME 9.1 FL (7.4-10.4); MONOCYTES # (AUTO) 0.3 X10'3 (0-0.9); NEUTROPHILS # (AUTO) 24.3 X10'3 (1.8-7.7); NEUTROPHILS % (AUTO) 95.3 % (42-75); RED BLOOD COUNT 2.85 X10'6 (4.70-6.10); RED CELL DISTRIBUTION WIDTH 18.3 % (11.5-14.5)
[2017-10-02 17:27] LABS: WHITE BLOOD COUNT 25.5 X10'3 (4.5-11.0)
[2017-10-02 17:28] LABS: PLATELET COUNT 24 X10'3 (140-440)
[2017-10-02 17:36] LABS: ALBUMIN 2.4 G/DL (3.4-5.0); ANION GAP 26 (8-16); BLOOD UREA NITROGEN 36 MG/DL (7-18); BUN/CREATININE RATIO 14.1 (5.4-32.0); CHLORIDE 102 MMOL/L (99-107); CREATININE 2.55 MG/DL (0.60-1.10); GLUCOSE 144 MG/DL (70-104); MAGNESIUM 1.6 MG/DL (1.5-2.4); PHOSPHORUS 4.3 MG/DL (2.3-4.5); POTASSIUM 4.1 MMOL/L (3.5-5.1); SODIUM 137 MMOL/L (135-145); eGFR 25 ML/MIN
[2017-10-02 17:38] LABS: TOTAL CARBON DIOXIDE 9.5 MMOL/L (24-32)
[2017-10-02] MEDS: mineral oil/petrolatum ophthal oint EACHEYE SCH (20:12)
[2017-10-02] MEDS: vasopressin inj. 60 UNIT in normal saline 100ml IV soln 97 ML IV SCH (20:18)
[2017-10-02] MEDS: insulin regular, human vial - multi-dose SQ SCH (20:19)
[2017-10-02] MEDS: Insulin Detemir pen SQ SCH (20:19)
[2017-10-02 22:26] LABS: ALANINE AMINOTRANSFERASE 1131 U/L (12-78); ALBUMIN/GLOBULIN RATIO 0.8 (1.1-1.5); ALKALINE PHOSPHATASE 205 IU/L (46-116); BILIRUBIN,DIRECT 2.5 MG/DL (0-0.3); BILIRUBIN,TOTAL 4.4 MG/DL (0.1-1.0); TOTAL PROTEIN 5.4 G/DL (6.4-8.2)
[2017-10-02 23:14] LABS: ASPARTATE AMINO TRANSFERASE 4998 U/L (10-37)
[2017-10-02 23:21] LABS: ANION GAP 25 (8-16); BLOOD UREA NITROGEN 35 MG/DL (7-18); BUN/CREATININE RATIO 14.5 (5.4-32.0); CHLORIDE 104 MMOL/L (99-107); CREATININE 2.42 MG/DL (0.60-1.10); GLUCOSE 130 MG/DL (70-104); MAGNESIUM 1.5 MG/DL (1.5-2.4); PHOSPHORUS 4.7 MG/DL (2.3-4.5); SODIUM 138 MMOL/L (135-145); eGFR 27 ML/MIN
[2017-10-02 23:30] LABS: BASOPHILS % (AUTO) 0.1 % (0-1); EOSINOPHILS # (AUTO) 0.1 X10'3 (0-0.9); EOSINOPHILS % (AUTO) 0.3 % (0-6); HEMATOCRIT 25.6 % (42.0-52.0); HEMOGLOBIN 8.8 g/dl (14.0-17.9); LYMPHOCYTES # (AUTO) 1.6 X10'3 (1.1-4.8); LYMPHOCYTES % (AUTO) 5.9 % (21-51); MEAN CORPUSCULAR HEMOGLOBIN 33.2 PG (27.0-31.0); MEAN CORPUSCULAR HGB CONC 34.3 % (33.0-36.5); MEAN CORPUSCULAR VOLUME 96.7 FL (78-98); MEAN PLATELET VOLUME 7.9 FL (7.4-10.4); MONOCYTES # (AUTO) 0.8 X10'3 (0-0.9); MONOCYTES % (AUTO) 2.9 % (2-12); NEUTROPHILS # (AUTO) 25.3 X10'3 (1.8-7.7); NEUTROPHILS % (AUTO) 90.8 % (42-75); RED BLOOD COUNT 2.65 X10'6 (4.70-6.10); RED CELL DISTRIBUTION WIDTH 16.6 % (11.5-14.5)
[2017-10-02 23:49] LABS: TOTAL CARBON DIOXIDE 9.3 MMOL/L (24-32)
[2017-10-02 23:52] LABS: POTASSIUM 3.9 MMOL/L (3.5-5.1)
[2017-10-02 23:57] LABS: PLATELET COUNT 15 X10'3 (140-440); WHITE BLOOD COUNT 27.8 X10'3 (4.5-11.0)
[2017-10-03] VITALS (16 sets, daily range): BP systolic 70–96; BP diastolic 30–36
[2017-10-03] MEDS: NORepinephrine 8mg/ 250ml NS 250 ML IV SCH ×5 (00:46→11:53)
[2017-10-03] MEDS: mineral oil/petrolatum ophthal oint EACHEYE SCH ×2 (01:36→08:14)
[2017-10-03] MEDS: hydrocortisone sod succ/PF 100mg/2ml inj. IV SCH ×2 (01:36→07:49)
[2017-10-03] MEDS: sodium bicarbonate (8.4%) inj. 150 MEQ in dextrose 5%-water 1,000 ML IV SCH ×2 (01:36→09:00)
[2017-10-03 03:33] LABS: BASOPHILS % (AUTO) 0 % (0-1); EOSINOPHILS # (AUTO) 0.6 X10'3 (0-0.9); EOSINOPHILS % (AUTO) 2.4 % (0-6); HEMOGLOBIN 7.1 g/dl (14.0-17.9); LYMPHOCYTES % (AUTO) 3.7 % (21-51); MEAN CORPUSCULAR HEMOGLOBIN 33.6 PG (27.0-31.0); MEAN CORPUSCULAR HGB CONC 35.1 % (33.0-36.5); MEAN CORPUSCULAR VOLUME 95.6 FL (78-98); MEAN PLATELET VOLUME 9.8 FL (7.4-10.4); MONOCYTES % (AUTO) 3.8 % (2-12); NEUTROPHILS # (AUTO) 23.6 X10'3 (1.8-7.7); NEUTROPHILS % (AUTO) 90.1 % (42-75); RED BLOOD COUNT 2.12 X10'6 (4.70-6.10); RED CELL DISTRIBUTION WIDTH 17.1 % (11.5-14.5)
[2017-10-03 03:37] LABS: PROTHROMBIN TIME 61.6 SECONDS (9.0-12.0)
[2017-10-03 03:54] LABS: ALBUMIN 1.5 G/DL (3.4-5.0); ALBUMIN/GLOBULIN RATIO 0.7 (1.1-1.5); ALKALINE PHOSPHATASE 377 IU/L (46-116); ANION GAP 27 (8-16); BILIRUBIN,TOTAL 3.9 MG/DL (0.1-1.0); BLOOD UREA NITROGEN 36 MG/DL (7-18); BUN/CREATININE RATIO 13.4 (5.4-32.0); CALCIUM 11.7 MG/DL (8.5-10.1); CHLORIDE 103 MMOL/L (99-107); CREATININE 2.69 MG/DL (0.60-1.10); GLUCOSE 134 MG/DL (70-104); MAGNESIUM 1.6 MG/DL (1.5-2.4); PHOSPHORUS 5.5 MG/DL (2.3-4.5); PREALBUMIN 6.4 MG/DL (19-36); SODIUM 139 MMOL/L (135-145); TOTAL PROTEIN 3.7 G/DL (6.4-8.2); eGFR 24 ML/MIN
[2017-10-03 03:57] LABS: INR 6.4 INR
[2017-10-03 04:00] LABS: PARTIAL THROMBOPLASTIN TIME 113 SECONDS (22-32)
[2017-10-03 04:06] LABS: WHITE BLOOD COUNT 26.2 X10'3 (4.5-11.0)
[2017-10-03 04:07] LABS: HEMATOCRIT 20.2 % (42.0-52.0); PLATELET COUNT 12 X10'3 (140-440)
[2017-10-03 04:36] LABS: ABG BASE EXCESS -23.3 mmol/L (-2.0-3.0); ABG HCO3 7.9 mmol/L (22.0-26.0); ABG PCO2 (T) 41.3 mmHg (35.0-48.0); ABG PH (T) 6.897 (7.350-7.450); ABG PO2 (T) < 28.0 mmHg (83-108); FCOHb 0.2 % (0.5-1.5); FO2Hb 23.5 % (94-100); MINUTE VOLUME 11 L/min; PATIENT TEMPERATURE 36.8; PEEP 5 cm H2O; RESPIRATORY RATE 20 b/min; RESPIRATORY RATE (OBSERVED) 20 b/min; TIDAL VOLUME 500 mL; TOTAL HEMOGLOBIN 7.1 G/dl (14.0-18.0)
[2017-10-03 04:47] LABS: ALANINE AMINOTRANSFERASE 2790 U/L (12-78); ASPARTATE AMINO TRANSFERASE > 7000 U/L (10-37)
[2017-10-03 04:48] LABS: POTASSIUM 4.4 MMOL/L (3.5-5.1)
[2017-10-03 04:56] LABS: NUCLEATED RED BLOOD CELLS 29 /100WBC (0-0); TOTAL CELLS COUNTED 100
[2017-10-03 05:00] LABS: ANISOCYTOSIS 2+; PLATELET ESTIMATE DECREASED
[2017-10-03 05:01] LABS: BURR CELLS 2+; POLYCHROMASIA 1+
[2017-10-03 07:18] LABS: VANCOMYCIN,RANDOM 24.6 UG/ML
[2017-10-03] MEDS: K, MAG and/or Phos replacement - Verify level? MC SCH (07:34)
[2017-10-03] MEDS: ampicillin/sulbac 3gm/NS 100ml 100 ML IV SCH (07:49)
[2017-10-03] MEDS: vancomycin/NS 1 GM ADD-VANTAGE 250 ML IV SCH (07:49)
[2017-10-03] MEDS: LACTOBACILLUS RHAMNOSUS GG 15 billion unit sprinkle caps PO SCH (07:49)
[2017-10-03] MEDS: emollient combination-Eucerin 250 ML LOTION TP SCH (07:50)
[2017-10-03] MEDS ORDERED: vancomycin/NS 1 GM ADD-VANTAGE 250 ML IV PRN (08:17)
[2017-10-03 10:26] LABS: TOTAL CARBON DIOXIDE 9.1 MMOL/L (24-32)
[2017-10-03] MEDS ORDERED: VANCOMYCIN LEVEL IV ONE (16:30)
[2017-10-04] MEDS ORDERED: VANCOMYCIN LEVEL IV SCH (03:00)
[2017-10-04 11:13] LABS: HBSAG SCREEN Negative (Negative)
== END 2017-10-03 16:43 | disposition expired | DRG 871 ==
LOC: CICU 2S 14:53
PROVIDERS: ADMIT Internal Medicine Critical Care Medicine; ATTEND Internal Medicine Critical Care Medicine
PROC: 5A1945Z Respiratory Ventilation, 24-96 Consecutive Hours (ICD-10-PCS; principal; 2017-09-27)
PROC: 0BH18EZ Insertion of Endotracheal Airway into Trachea, Via Natural or Artificial Opening Endoscopic (ICD-10-PCS; 2017-09-27)
PROC: 0D9670Z Drainage of Stomach with Drainage Device, Via Natural or Artificial Opening (ICD-10-PCS; 2017-09-27)
PROC: 0BH17EZ Insertion of Endotracheal Airway into Trachea, Via Natural or Artificial Opening (ICD-10-PCS; 2017-10-01)
PROC: 5A09357 Assistance with Respiratory Ventilation, Less than 24 Consecutive Hours, Continuous Positive Airway Pressure (ICD-10-PCS; 2017-10-01)
PROC: 06HM33Z Insertion of Infusion Device into Right Femoral Vein, Percutaneous Approach (ICD-10-PCS; 2017-10-01)
PROC: 5A1D70Z Performance of Urinary Filtration, Intermittent, Less than 6 Hours Per Day (ICD-10-PCS; 2017-10-01)
PROC: 5A1D90Z Performance of Urinary Filtration, Continuous, Greater than 18 hours Per Day (ICD-10-PCS; 2017-10-01)
PROC: 5A1945Z Respiratory Ventilation, 24-96 Consecutive Hours (ICD-10-PCS; 2017-10-01)
PROC: 30233N1 Transfusion of Nonautologous Red Blood Cells into Peripheral Vein, Percutaneous Approach (ICD-10-PCS; 2017-10-02)
DX: A41.81 Sepsis due to Enterococcus (principal); J96.00 Acute respiratory failure, unspecified whether with hypoxia or hypercapnia; K72.00 Acute and subacute hepatic failure without coma; R65.21 Severe sepsis with septic shock; N17.9 Acute kidney failure, unspecified; D69.6 Thrombocytopenia, unspecified; E11.22 Type 2 diabetes mellitus with diabetic chronic kidney disease; G82.20 Paraplegia, unspecified; K56.7 Ileus, unspecified; R74.8 Abnormal levels of other serum enzymes; J44.9 Chronic obstructive pulmonary disease, unspecified; I50.9 Heart failure, unspecified; N18.9 Chronic kidney disease, unspecified; Z51.5 Encounter for palliative care; I25.2 Old myocardial infarction; Z23 Encounter for immunization
CPT/HCPCS: 36415; 36600; 71045; 71250; 74176; 80053; 80069; 80076; 80202; 81001; 82140; 82330; 82803; 82810; 82948; 83036; 83605; 83735; 83880; 84100; 84134; 84145; 84443; 84484; 85018; 85025; 85379; 85384; 85610; 85730; 86885; 86900; 86901; 86920; 87040; 87070; 87088; 87186; 87340; 93005; 93306; 94002; 94003; 94760; A4315; A4333; A4421; A4649; A6196; A6209; A6212; A6213; A6253; A6257; A6449; C1751; C1758; C9113; G0257; J0295; J1644; J1720; J1815; J2020; J2150; J2250; J2543; J3370; J3490; J7030; J7070; P9016; P9047; Q9963